=== PATIENT | male | born 1955 | race Caucasian/White ===

== ENCOUNTER → 2017-05-25 | Outpatient (CLI) | payer OTHER ==
--- NOTE | 2017-05-25 10:11 | Diagnostic Imaging Report ---
AP and frog lateral views of the left hip. INDICATION: Left hip pain. FINDINGS: Advanced osteoarthritis of the left hip with near total loss of cartilage suggested along the lateral aspect of the acetabulum with [id number] appearance and sclerotic reaction seen. Osteophyte formation is also noted. No fracture or dislocation. Mild degenerative changes in the left SI joint and symphysis pubis seen. IMPRESSION: Advanced left hip osteoarthritis. Dictated by: Dictated on workstation # [id number]
--- NOTE | 2017-05-25 11:30 | Diagnostic Imaging Report ---
3 views of the lumbar spine. INDICATION: Back pain. FINDINGS: There is satisfactory alignment of the lumbar spine. The vertebral body heights are preserved. Disc heights are also preserved. There are multilevel anterior osteophytes noted without significant posterior osteophytes. There are significant SI joint sclerotic changes seen. There are also significant facet joint sclerotic changes. Left flank calcification measuring 4 mm is noted which could relate to a kidney stone. Advanced left hip osteoarthritis is suggested. IMPRESSION: Lower lumbar spine facet arthropathy and suggestion of mild disc disease is seen. Dictated by: Dictated on workstation # [id number]
== END ==
LOC: RAD 07:26
PROVIDERS: ATTEND Internal Medicine
DX: M16.12 Unilateral primary osteoarthritis, left hip (principal); M47.816 Spondylosis without myelopathy or radiculopathy, lumbar region
CPT/HCPCS: 72100; 73502

== ENCOUNTER 2019-04-02 05:34 | Outpatient (CLI) | payer OTHER ==
[~2019-04-02] VITALS: Ht 167.6 cm; Wt 97.1 kg
[2019-04-02] MEDS ORDERED: NAPR500T8 PO (14:52)
[2019-04-02] MEDS ORDERED: DOXA4TAB2 PO (14:52)
[2019-04-02] MEDS ORDERED: METF-478 PO (14:52)
[2019-04-02] MEDS ORDERED: METF500T8 PO (14:52)
[2019-04-02] MEDS ORDERED: ESCI10TA55 PO (14:52)
[2019-04-02] MEDS ORDERED: TRAM50TA2 PO (14:52)
[2019-04-02] MEDS ORDERED: VALS160T29 PO (14:52)
== END 2019-04-02 14:59 ==
LOC: PREOP 05:34
PROVIDERS: ATTEND Internal Medicine
DX: Z01.818 Encounter for other preprocedural examination (principal)

== ENCOUNTER 2019-04-04 07:32 | Day surgery (SDC) | payer OTHER ==
--- NOTE | 2019-03-21 18:04 | HISTORY AND PHYSICAL ---
DATE OF SERVICE: COLONOSCOPY HISTORY AND PHYSICAL HISTORY OF PRESENT ILLNESS: The patient is a 63-year-old white male, who presented to the office on 03/06/2019 for a discussion of an elevated PSA. His level was 6.31. Last study had been done in 11/2015 and was 4.14. He has never had a screening colonoscopy performed. He also reported palpitations with a longstanding history of PVCs that had been worse, attributed to increased stress per his report. He did not have any sensations of heart racing with this, just skipped beats. He has nocturia x1 or 2 at night with reasonable stream. No dribbling or urinary incontinence. He has noted no blood in the stools. Denies any bowel habit change. PHYSICAL EXAMINATION: GENERAL: Reveals a well-appearing, albeit anxious white male in no acute distress. VITAL SIGNS: Blood pressure was 162/74. CARDIOVASCULAR: Revealed a regular rate and rhythm with frequent prematurity's. No S3, S4 or significant murmur was noted. ABDOMEN: Soft, supple without mass, organomegaly or tenderness. CHEST: Clear to auscultation. EXTREMITIES: Reveal no cyanosis, clubbing or edema. ASSESSMENT AND PLAN: 1. Elevated PSA with likely underlying BPH. Discussed on the importance of screening colonoscopy and that we would perform a digital rectal evaluation at that time. Test was set up for early March. Prep instructions with [facility]iz-prep kit were given and questions were answered. 2. Hypertension, not under ideal control with underlying PVCs. We will initiate bisoprolol and HCTZ 5/6.25 mg daily and we will be monitoring PVC issues during his colonoscopy. We will repeat PSA early with further recommendations pending digital rectal evaluation post colonoscopy with PSA scheduled on his followup appointment in July. 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
[2019-04-04] VITALS (14 sets, daily range): BP systolic 136–160; BP diastolic 63–82
[~2019-04-04] VITALS: Ht 167.6 cm; Wt 97.1 kg
[~2019-04-04 07:32] MED LIST: DOXA4TAB2 PO; ESCI10TA55 PO; METF-478 PO; METF500T8 PO; NAPR500T8 PO; TRAM50TA2 PO; VALS160T29 PO
[2019-04-04] MEDS ORDERED: D5 LR IV SOLUTION 1,000 ML IV ONE (07:54)
[2019-04-04] MEDS ORDERED: D5 LR IV SOLUTION 1,000 ML IV PRN (08:00)
[2019-04-04] MEDS ORDERED: MIDAZOLAM 2 MG/2 ML (VERSED) VIAL IVP ONE (08:00)
[2019-04-04] MEDS ORDERED: LIDOCAINE JELLY 2% 6 ML SYRINGE MM PRN (08:00)
[2019-04-04] MEDS ORDERED: LIDOCAINE JELLY 2% 6 ML SYRINGE ONE (08:06)
[2019-04-04] MEDS ORDERED: fentaNYL INJECTION 100 MCG/2 ML AMP ONE (08:06)
[2019-04-04] MEDS ORDERED: MIDAZOLAM 2 MG/2 ML (VERSED) VIAL ONE ×3 (08:07)
--- NOTE | 2019-04-04 08:08 | Pre-Op Note & Conscious Sedat ---
Pre-Operative Progress Note H&P Reviewed The H&P was reviewed, patient examined and no changes noted. Date H&P Reviewed: Apr 04, 2019 Time H&P Reviewed: 07:55 Conscious Sedation Pre-Proced ASA Score 2 For ASA 3 and 4: Consider anesthesia and medical clearance. Also, for patients with a history of failed moderate sedation consider anesthesia. Airway Lungs Heart ASA score ASA 1: a normal healthy patient ASA 2: a patient with a mild systemic disease (mid diabetes, controlled hypertension, obesity ASA 3: a patient with a severe systemic disease that limits activity (angina, COPD, prior Myocardial infarction) ASA 4: a patient with an incapacitating disease that is a constant threat to life (CHF, renal failure) ASA 5: a moribund patient not expected to survive 24 hrs. (ruptured aneurysm) ASA 6: a declared brain- patient whose organs are being harvested. For emergent operations, add the letter E after the classification Mallampati Classification Grade 2 Sedation Plan Analgesia, Amnesia, Plan communicated to team members, Discussed options with patient/fam, Discussed risks with patient/fam The patient is an appropriate candidate to undergo the planned procedure, sedation, and anesthesia. The patient immediately re-assessed prior to indication. SUYAPA HOLLINS MD Apr 04, 2019 08:08
[2019-04-04] MEDS: fentaNYL INJECTION 100 MCG/2 ML AMP IVP ONE (08:15)
--- NOTE | 2019-04-04 10:19 | OPERATIVE REPORT ---
DATE OF SERVICE: COLONOSCOPY SUMMARY INDICATION FOR THE PROCEDURE: Screening colonoscopy. DESCRIPTION OF PROCEDURE: The patient was placed in the left lateral decubitus position. Prior to undergoing colonoscopy, digital rectal evaluation was performed. Anal sphincter tone was normal and the perianal reflex was intact. No evidence for internal or external hemorrhoids were noted. The prostate is moderately enlarged, anodular and nontender to digital inspection. The colonoscope was then inserted into the rectum and under direct visualization advanced to the cecum. The cecum was identified by identification of the ileocecal valve and the cecal strap. Photographic documentation was obtained. A careful inspection was made as the colonoscope was withdrawn. The patient tolerated the procedure well. FINDINGS: There was no evidence for internal or external hemorrhoids and the rectum was unremarkable. A moderate number of medium to large size diverticulum were present confined to the sigmoid colon. Present in the proximal sigmoid colon was a 4 mm sessile polyp. It was biopsied and ablated and submitted for histopathology hot forceps. The descending colon, splenic flexure and transverse colon as well as hepatic flexure were unremarkable. Present in the mid ascending colon was a small lipoma. The ascending colon and cecum were otherwise unremarkable. ASSESSMENT: 1. Digital rectal exam was concistent with moderate BPH with no other palpable abnormalities being noted of the prostate. The patient's PSA was little over 6 and he will be scheduled for an early PSA in 6 months. 2. One diminutive polyp was removed via hot forceps from the proximal sigmoid colon without blood loss. The patient is not aware of any family history for colon cancer or prostate cancer, so I would advocate consideration for repeat screening colonoscopy in 10 years. 3. Moderate diverticular disease confined to the sigmoid colon was present without evidence for diverticulitis. 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
== END 2019-04-04 09:40 | disposition home or self-care (01) ==
LOC: ENDO 07:32
PROVIDERS: ATTEND Internal Medicine
DX: Z12.11 Encounter for screening for malignant neoplasm of colon (principal); D12.5 Benign neoplasm of sigmoid colon; K57.30 Diverticulosis of large intestine without perforation or abscess without bleeding; N40.0 Benign prostatic hyperplasia without lower urinary tract symptoms; R97.20 Elevated prostate specific antigen [PSA]; I10 Essential (primary) hypertension; Z88.1 Allergy status to other antibiotic agents; Z79.84 Long term (current) use of oral hypoglycemic drugs; Z79.899 Other long term (current) drug therapy
CPT/HCPCS: 88305

== ENCOUNTER → 2020-05-15 | Outpatient (REF) ==
[~2020-05-15] MED LIST changes: +METF-865 PO; -METF500T8 PO; -TRAM50TA2 PO; +TRM50T PO
--- NOTE | 2020-05-15 13:27 | Diagnostic Imaging Report ---
Indication: Positive TB skin test. Time of exam: 1:19 PM No prior studies are available for comparison. The heart size is normal. Lungs are hyperinflated consistent with COPD. No infiltrates are seen. No findings to suggest tuberculosis are identified. There is no effusion or pneumothorax. IMPRESSION: COPD. No other significant abnormality is detected. Dictated by: Dictated on workstation # [id number]
== END ==
LOC: OCC 13:09
PROVIDERS: ATTEND Nurse Practitioner Family
DX: R76.11 Nonspecific reaction to tuberculin skin test without active tuberculosis (principal); J44.9 Chronic obstructive pulmonary disease, unspecified
CPT/HCPCS: 71046